=== PATIENT | male | born 1975 | race Caucasian/White ===

== ENCOUNTER 2024-10-18 15:30 | Inpatient (IN) | payer OTHER ==
[~2024-10-18] VITALS: Ht 180.3 cm; Wt 95.0 kg
[2024-10-18] MEDS: VANCOMYCIN 1.25 GM/WATER(PEG) 250 ML IV ONE (16:33)
[2024-10-18] MEDS: CLINDAMYCIN 600 MG/D5% WATER 50 ML IV ONE (16:33)
[2024-10-18 16:42] LABS: EOSINOPHILS % (AUTO) 2.1 % (1.0-6.0); HEMOGLOBIN 12.9 g/dL (13.5-17.5); LYMPHOCYTES # (AUTO) 6.5 K/uL (1.0-4.8); LYMPHOCYTES % (AUTO) 56.8 % (22.0-44.0); MEAN CORPUSCULAR HEMOGLOBIN 30.1 pg (26.0-34.0); MEAN CORPUSCULAR VOLUME 89 fL (80-100); MONOCYTES # (AUTO) 1.3 K/uL (0.1-1.0); MONOCYTES % (AUTO) 11.6 % (2.0-9.0); NEUTROPHILS # (AUTO) 3.3 K/uL (1.8-7.7); NEUTROPHILS % (AUTO) 28.5 % (40.0-70.0); PLATELET COUNT (AUTO) 336 K/uL (150-450); RED BLOOD CELL COUNT(AUTO) 4.29 MIL/uL (4.50-5.90); RED CELL DISTRIBUTION WIDTH 13.9 % (11.5-14.5); WHITE BLOOD COUNT (AUTO) 11.5 K/uL (4.5-11.0)
[2024-10-18 16:59] LABS: ANION GAP 8 mmol/L (8-16); CALCIUM, TOTAL 8.9 mg/dL (8.8-10.5); CARBON DIOXIDE 32 mmol/L (22-29); CHLORIDE 103 mmol/L (98-107); CREATININE 0.87 mg/dL (0.60-1.30); GLOMERULAR FILTR. RATE CALC > 60 mL/min (>60); GLUCOSE,RANDOM 113 mg/dL (70-110); LACTIC ACID 0.8 mmol/L (0.4-2.0); POTASSIUM 4.4 mmol/L (3.5-5.1); SODIUM SERUM 142 mmol/L (136-145); UREA NITROGEN, BLOOD 10 mg/dL (7-18)
[2024-10-18 17:05] LABS: ALANINE AMINOTRANSFERASE 51 U/L (12-78); ALBUMIN 3.4 g/dL (3.4-5.0); ALKALINE PHOSPHATASE 96 U/L (46-116); ASPARTATE AMINOTRANSFERASE 41 U/L (15-37); BILIRUBIN,TOTAL 0.3 mg/dL (0.1-1.0); TOTAL PROTEIN, SERUM 7.7 g/dL (6.4-8.2)
[2024-10-18] MEDS ORDERED: BUPR1TAB45 SL (17:09)
[2024-10-18] MEDS ORDERED: ACET-2247 PO (17:09)
[2024-10-18] MEDS ORDERED: ADAL40SY SQ (17:09)
[2024-10-18] MEDS ORDERED: DOXY50 PO (17:09)
[2024-10-18] MEDS ORDERED: CARV3 PO (17:09)
[2024-10-18] MEDS ORDERED: DOCU-385 PO (17:09)
[2024-10-18] MEDS ORDERED: AMIT75TA6 PO (17:09)
[2024-10-18 17:30] LABS: APPEARANCE,URINE CLEAR (CLEAR); BILIRUBIN,URINE NEGATIVE (NEGATIVE); COLOR,URINE LIGHT YELLOW (YELLOW); GLUCOSE, URINE (UA) NEGATIVE (NEGATIVE); KETONES,URINE NEGATIVE (NEGATIVE); LEUKOCYTE ESTERASE ,URINE NEGATIVE (NEGATIVE); NITRATE,URINE NEGATIVE (NEGATIVE); OCCULT BLOOD,URINE NEGATIVE (NEGATIVE); PH,URINE 5.5 (5.0-8.0); PROTEIN,URINE NEGATIVE (NEGATIVE); SPECIFIC GRAVITIY, URINE 1.008 (1.003-1.030); UROBILINOGEN,URINE <=1.0 mg/dL (<=1.0)
[2024-10-18] MEDS ORDERED: ONDANSETRON HCL 4 MG/2 ML VIAL IVP PRN (18:45)
[2024-10-18] MEDS: CefTRIAXone 1 GM/DEXTROSE 50 ML IV SCH (19:17)
[2024-10-18] MEDS: DOCUSATE SODIUM 100 MG CAPSULE PO SCH (21:00)
[2024-10-18] MEDS: POLYETHYLENE GLYCOL 3350 17 GM PACKET PO PRN (22:43)
[2024-10-18] MEDS: SENNOSIDES 8.8 MG/5 ML SYRUP UDCUP PO ONE (22:44)
[2024-10-18] MEDS: BISACODYL 5 MG EC TABLET PO ONE (22:44)
[2024-10-19] MEDS: VANCOMYCIN HCL 1 GM/D5% WATER 200 ML IV SCH (00:33)
[2024-10-19] MEDS: HEPARIN SODIUM,PORCINE 5,000 UNITS/ML VIAL SQ SCH (00:34)
[2024-10-19 03:46] VITALS: BP 137/86; PULSE 56; RESP 18; TEMP 97.9; O2SAT 96
[2024-10-19] MEDS: ACETAMINOPHEN 325 MG TABLET PO PRN (04:21)
[2024-10-19 07:21] VITALS: BP 121/60; PULSE 70; RESP 18; TEMP 97.7; O2SAT 97
[2024-10-19 08:06] LABS: HIV 1-2 SCREEN 4TH GEN W/RFLX Non Reactive (Non Reactive)
[2024-10-19] MEDS ORDERED: SODIUM CHLORIDE 0.9% 250 ML IV ONE (08:16)
[2024-10-19 10:02] LABS: BASOPHILS % (AUTO) 0.6 % (0.0-2.0); EOSINOPHILS % (AUTO) 4.2 % (1.0-6.0); HEMATOCRIT 38.1 % (41-53); LYMPHOCYTES # (AUTO) 4.1 K/uL (1.0-4.8); LYMPHOCYTES % (AUTO) 49.3 % (22.0-44.0); MEAN CORPUSCULAR HEMOGLOBIN 29.9 pg (26.0-34.0); MEAN CORPUSCULAR VOLUME 88 fL (80-100); MONOCYTES # (AUTO) 0.7 K/uL (0.1-1.0); MONOCYTES % (AUTO) 8.1 % (2.0-9.0); NEUTROPHILS # (AUTO) 3.1 K/uL (1.8-7.7); NEUTROPHILS % (AUTO) 37.8 % (40.0-70.0); PLATELET COUNT (AUTO) 345 K/uL (150-450); RED BLOOD CELL COUNT(AUTO) 4.33 MIL/uL (4.50-5.90); RED CELL DISTRIBUTION WIDTH 13.9 % (11.5-14.5); WHITE BLOOD COUNT (AUTO) 8.3 K/uL (4.5-11.0)
[2024-10-19 10:17] LABS: ANION GAP 8 mmol/L (8-16); CALCIUM, TOTAL 9.1 mg/dL (8.8-10.5); CARBON DIOXIDE 26 mmol/L (22-29); CHLORIDE 105 mmol/L (98-107); CREATININE 0.82 mg/dL (0.60-1.30); GLOMERULAR FILTR. RATE CALC > 60 mL/min (>60); GLUCOSE,RANDOM 178 mg/dL (70-110); POTASSIUM 4.1 mmol/L (3.5-5.1); SODIUM SERUM 139 mmol/L (136-145); UREA NITROGEN, BLOOD 10 mg/dL (7-18)
[2024-10-19] MEDS: BUPRENORPHINE HCL/NALOXONE HCL 2-0.5 MG SUBLINGUAL TABLET SL SCH (20:24)
[2024-10-19 20:30] VITALS: BP 129/75; PULSE 62; RESP 19; TEMP 98.7; O2SAT 98
[2024-10-20 05:13] VITALS: BP 122/77; PULSE 64; RESP 19; TEMP 98.2; O2SAT 95
[2024-10-20 07:10] LABS: BASOPHILS % (AUTO) 1.1 % (0.0-2.0); EOSINOPHILS % (AUTO) 4.4 % (1.0-6.0); HEMATOCRIT 38.9 % (41-53); HEMOGLOBIN 13.4 g/dL (13.5-17.5); LYMPHOCYTES # (AUTO) 5.6 K/uL (1.0-4.8); LYMPHOCYTES % (AUTO) 63.6 % (22.0-44.0); MEAN CORPUSCULAR HEMOGLOBIN 30.6 pg (26.0-34.0); MEAN CORPUSCULAR HGB CONC 34.3 G/dL (31.0-37.0); MEAN CORPUSCULAR VOLUME 89 fL (80-100); MONOCYTES # (AUTO) 0.8 K/uL (0.1-1.0); MONOCYTES % (AUTO) 9.5 % (2.0-9.0); NEUTROPHILS # (AUTO) 1.9 K/uL (1.8-7.7); NEUTROPHILS % (AUTO) 21.4 % (40.0-70.0); PLATELET COUNT (AUTO) 345 K/uL (150-450); RED BLOOD CELL COUNT(AUTO) 4.38 MIL/uL (4.50-5.90); RED CELL DISTRIBUTION WIDTH 13.6 % (11.5-14.5); WHITE BLOOD COUNT (AUTO) 8.8 K/uL (4.5-11.0)
[2024-10-20 07:27] LABS: ANION GAP 4 mmol/L (8-16); CALCIUM, TOTAL 9.3 mg/dL (8.8-10.5); CARBON DIOXIDE 31 mmol/L (22-29); CHLORIDE 106 mmol/L (98-107); CREATININE 0.83 mg/dL (0.60-1.30); GLOMERULAR FILTR. RATE CALC > 60 mL/min (>60); GLUCOSE,RANDOM 88 mg/dL (70-110); SODIUM SERUM 141 mmol/L (136-145); UREA NITROGEN, BLOOD 9 mg/dL (7-18)
[2024-10-20 08:11] VITALS: BP 117/79; PULSE 61; RESP 18; TEMP 98.4; O2SAT 98
[2024-10-20] MEDS ORDERED: KETOROLAC TROMETHAMINE 60 MG/2 ML VIAL IM ONE (12:00)
[2024-10-20] MEDS ORDERED: DEXAMETHASONE SOD PHOS 4 MG/ML VIAL IVP ONE (12:00)
[2024-10-20] MEDS ORDERED: ONDANSETRON HCL 4 MG/2 ML VIAL IVP ONE (12:00)
[2024-10-20] MEDS ORDERED: LIDOCAINE/PF 2% 5 ML SYRINGE IVP ONE (12:00)
[2024-10-20] MEDS ORDERED: PROPOFOL 1% 20 ML VIAL IVP ONE (12:00)
[2024-10-20] MEDS ORDERED: MIDAZOLAM HCL 2 MG/2 ML VIAL IVP ONE (12:00)
[2024-10-20] MEDS ORDERED: METOCLOPRAMIDE HCL 5 MG/ML 2 ML VIAL IVP ONE (12:00)
[2024-10-20] MEDS ORDERED: PROPOFOL 1% ISO-OSM 1000 MG/100 ML BOTTLE IV ONE (12:00)
[2024-10-20] MEDS ORDERED: DOXY-354 PO (12:13)
[2024-10-20 16:24] VITALS: BP 117/71; PULSE 61; RESP 18; TEMP 98.4; O2SAT 97
[2024-10-20] MEDS ORDERED: RINGERS SOLUTION,LACTATED 1,000 ML IV ONE (17:42)
[2024-10-20] MEDS: ETHYL ALCOHOL 62% ANTISEPTIC NASAL SANITIZER 0.6 ML AMPUL NASAL ONE (17:55)
[2024-10-20] MEDS ORDERED: MEPERIDINE-PF 25 MG/ML VIAL IVP PRN (18:15)
[2024-10-20] MEDS ORDERED: FentaNYL CITRATE PF 100 MCG/2 ML VIAL IVP PRN (18:15)
[2024-10-20] MEDS ORDERED: HYDROmorphone HCL 2 MG/ML SYRINGE IVP PRN ×2 (18:15→20:15)
[2024-10-20] MEDS ORDERED: BUPIVACAINE 0.25%/EPI 1:200,000/PF 30 ML VIAL ONE (19:01)
[2024-10-20] MEDS ORDERED: BUPIVACAINE 0.25%/EPI 1:200,000/PF 10 ML VIAL ONE (19:01)
[2024-10-20] MEDS: BUPIVACAINE 0.25%/EPI 1:200,000/PF 10 ML VIAL PERC ONE (19:50)
[2024-10-20 20:56] VITALS: BP 129/89; PULSE 65; RESP 18; TEMP 98.1; O2SAT 95
[2024-10-20] MEDS: IBUPROFEN 400 MG TABLET PO SCH (21:22)
[2024-10-20] MEDS: FAMOTIDINE 20 MG TABLET PO SCH (21:22)
[2024-10-20] MEDS: CHLORHEXIDINE GLUCONATE 2% TOWELETTE [2'S/6'S] TP SCH (21:23)
[2024-10-20] MEDS ORDERED: SODIUM CHLORIDE 0.9% 500 ML IV ONE (23:22)
[2024-10-20] MEDS: HYDROCODONE/ACETAMINOPHEN 10-325 MG TABLET PO PRN (23:37)
[2024-10-21 05:31] VITALS: BP 114/68; PULSE 72; RESP 18; TEMP 97.7; O2SAT 94
[2024-10-21 08:24] VITALS: BP 123/83; PULSE 63; RESP 18; TEMP 98.4; O2SAT 98
[2024-10-21 08:30] LABS: ANION GAP 6 mmol/L (8-16); CALCIUM, TOTAL 9.3 mg/dL (8.8-10.5); CARBON DIOXIDE 28 mmol/L (22-29); CHLORIDE 105 mmol/L (98-107); CREATININE 0.82 mg/dL (0.60-1.30); GLOMERULAR FILTR. RATE CALC > 60 mL/min (>60); GLUCOSE,RANDOM 120 mg/dL (70-110); POTASSIUM 4.9 mmol/L (3.5-5.1); SODIUM SERUM 139 mmol/L (136-145); UREA NITROGEN, BLOOD 14 mg/dL (7-18)
[2024-10-21 17:11] VITALS: BP 114/72; PULSE 62; RESP 19; TEMP 98.2; O2SAT 95
[2024-10-21] MEDS: BUPRENORPHINE HCL/NALOXONE HCL 2-0.5 MG SUBLINGUAL TABLET SL SCH (18:00)
[2024-10-21 20:06] VITALS: BP 119/76; PULSE 57; RESP 18; TEMP 97.8; O2SAT 98
[2024-10-22 05:24] VITALS: BP 118/76; PULSE 56; RESP 18; TEMP 98; O2SAT 96
[2024-10-22 07:30] LABS: ANION GAP 3 mmol/L (8-16); CALCIUM, TOTAL 8.8 mg/dL (8.8-10.5); CARBON DIOXIDE 29 mmol/L (22-29); CHLORIDE 108 mmol/L (98-107); CREATININE 0.78 mg/dL (0.60-1.30); GLOMERULAR FILTR. RATE CALC > 60 mL/min (>60); GLUCOSE,RANDOM 89 mg/dL (70-110); POTASSIUM 4.1 mmol/L (3.5-5.1); SODIUM SERUM 140 mmol/L (136-145); UREA NITROGEN, BLOOD 13 mg/dL (7-18)
[2024-10-22 08:05] VITALS: BP 133/77; PULSE 59; RESP 18; TEMP 97.8; O2SAT 95
[2024-10-22] MEDS: VANCOMYCIN 1.5 GM/WATER(PEG) 300 ML IV SCH (08:10)
[2024-10-22 20:04] VITALS: BP 130/81; PULSE 69; RESP 18; TEMP 98.2; O2SAT 94
[2024-10-23 05:04] VITALS: BP 133/75; PULSE 65; RESP 18; TEMP 97.8; O2SAT 94
[2024-10-23 08:09] VITALS: BP 120/78; PULSE 61; RESP 18; TEMP 97.8; O2SAT 96
[2024-10-23 08:46] LABS: CALCIUM, TOTAL 8.6 mg/dL (8.8-10.5); CARBON DIOXIDE 30 mmol/L (22-29); GLOMERULAR FILTR. RATE CALC > 60 mL/min (>60); GLUCOSE,RANDOM 79 mg/dL (70-110); UREA NITROGEN, BLOOD 13 mg/dL (7-18)
[2024-10-23 09:11] LABS: ANION GAP 5 mmol/L (8-16); CHLORIDE 107 mmol/L (98-107); POTASSIUM 4.8 mmol/L (3.5-5.1); SODIUM SERUM 142 mmol/L (136-145)
[2024-10-23 20:00] VITALS: BP 127/72; PULSE 67; RESP 20; TEMP 98; O2SAT 96
[2024-10-23] MEDS: OXYGEN THERAPY IH SCH (20:00)
[2024-10-24 04:20] VITALS: BP 122/69; PULSE 59; RESP 18; TEMP 97.7; O2SAT 96
[2024-10-24 07:25] LABS: HEMOGLOBIN 13.5 g/dL (13.5-17.5); MEAN CORPUSCULAR HEMOGLOBIN 30.6 pg (26.0-34.0); MEAN CORPUSCULAR HGB CONC 34.7 G/dL (31.0-37.0); MEAN CORPUSCULAR VOLUME 88 fL (80-100); PLATELET COUNT (AUTO) 399 K/uL (150-450); RED BLOOD CELL COUNT(AUTO) 4.43 MIL/uL (4.50-5.90); RED CELL DISTRIBUTION WIDTH 13.9 % (11.5-14.5)
[2024-10-24 07:31] LABS: ANION GAP 8 mmol/L (8-16); CALCIUM, TOTAL 8.8 mg/dL (8.8-10.5); CARBON DIOXIDE 28 mmol/L (22-29); CHLORIDE 105 mmol/L (98-107); CREATININE 0.83 mg/dL (0.60-1.30); GLOMERULAR FILTR. RATE CALC > 60 mL/min (>60); GLUCOSE,RANDOM 83 mg/dL (70-110); POTASSIUM 4.5 mmol/L (3.5-5.1); SODIUM SERUM 141 mmol/L (136-145); UREA NITROGEN, BLOOD 13 mg/dL (7-18)
[2024-10-24 08:43] LABS: BAND NEUTROPHILS % (MANUAL) 0 % (0-5)
[2024-10-24 08:46] LABS: EOSINOPHILS % (MANUAL) 5 % (1-6); LYMPHOCYTES % (MANUAL) 51 % (22-44); MONOCYTES % (MANUAL) 13 % (2-9); RBC MORPHOLOGY COMMENT NORMAL RBC MORPH; SEGMENTED NEUTROPHILS % 31 % (40-70); TOTAL CELLS COUNTED 100
[2024-10-24 10:35] VITALS: BP 126/72; PULSE 66; RESP 19; TEMP 97.9; O2SAT 96
[2024-10-24 19:57] VITALS: BP 120/87; PULSE 65; RESP 18; TEMP 98.3; O2SAT 98
[2024-10-25 05:05] VITALS: BP 114/75; PULSE 60; RESP 18; TEMP 97.6; O2SAT 97
[2024-10-25 08:04] VITALS: BP 117/64; PULSE 67; RESP 18; TEMP 98; O2SAT 97
[2024-10-25 08:05] LABS: ANION GAP 5 mmol/L (8-16); CARBON DIOXIDE 30 mmol/L (22-29); CHLORIDE 106 mmol/L (98-107); CREATININE 0.77 mg/dL (0.60-1.30); GLOMERULAR FILTR. RATE CALC > 60 mL/min (>60); GLUCOSE,RANDOM 84 mg/dL (70-110); POTASSIUM 4.4 mmol/L (3.5-5.1); SODIUM SERUM 141 mmol/L (136-145); UREA NITROGEN, BLOOD 13 mg/dL (7-18)
[2024-10-25] MEDS: CLINDAMYCIN HCL 300 MG CAPSULE PO SCH (18:32)
[2024-10-25 19:48] VITALS: BP 122/74; PULSE 69; RESP 20; TEMP 98.3; O2SAT 96
[2024-10-26 04:40] VITALS: BP 106/63; PULSE 60; RESP 18; TEMP 98; O2SAT 98
[2024-10-26 07:51] LABS: BASOPHILS % (AUTO) 0.2 % (0.0-2.0); EOSINOPHILS % (AUTO) 3.6 % (1.0-6.0); HEMATOCRIT 40.8 % (41-53); HEMOGLOBIN 14.1 g/dL (13.5-17.5); LYMPHOCYTES # (AUTO) 6.1 K/uL (1.0-4.8); LYMPHOCYTES % (AUTO) 58.6 % (22.0-44.0); MEAN CORPUSCULAR HEMOGLOBIN 30.8 pg (26.0-34.0); MEAN CORPUSCULAR HGB CONC 34.6 G/dL (31.0-37.0); MEAN CORPUSCULAR VOLUME 89 fL (80-100); MONOCYTES # (AUTO) 0.9 K/uL (0.1-1.0); MONOCYTES % (AUTO) 8.2 % (2.0-9.0); NEUTROPHILS # (AUTO) 3.1 K/uL (1.8-7.7); NEUTROPHILS % (AUTO) 29.4 % (40.0-70.0); PLATELET COUNT (AUTO) 402 K/uL (150-450); RED BLOOD CELL COUNT(AUTO) 4.58 MIL/uL (4.50-5.90); RED CELL DISTRIBUTION WIDTH 13.6 % (11.5-14.5); WHITE BLOOD COUNT (AUTO) 10.5 K/uL (4.5-11.0)
[2024-10-26 08:04] VITALS: BP_SYST 107; BP_SYST 117; BP_DIAS 66; BP_DIAS 67; PULSE 64; RESP 20; TEMP 98.1; O2SAT 95; O2SAT 98
[2024-10-26 08:07] LABS: RBC MORPHOLOGY COMMENT NORMAL RBC MORPH
[2024-10-26] MEDS ORDERED: CHLO1TOW (14:29)
[2024-10-26] MEDS ORDERED: CEPH-558 PO (14:30)
[2024-10-26] MEDS ORDERED: FAMO20 PO (14:31)
[2024-10-26] MEDS ORDERED: IBUP-2853 PO (14:33)
[2024-10-26] MEDS ORDERED: POLY17PO47 PO (14:33)
[2024-10-26 17:06] VITALS: BP 117/77; PULSE 90; RESP 18; TEMP 97.9; O2SAT 99
== END 2024-10-26 22:40 | DRG 571 ==
LOC: EMS 15:30 → EDH 18:51 → EDBD 18:51 → 6S 10-19 03:38
PROVIDERS: ADMIT Internal Medicine; ATTEND Internal Medicine
PROC: 0JBC0ZZ Excision of Pelvic Region Subcutaneous Tissue and Fascia, Open Approach (ICD-10-PCS; principal; 2024-10-20 20:00)
DX: L03.314 Cellulitis of groin (principal); D84.821 Immunodeficiency due to drugs; I96 Gangrene, not elsewhere classified; L02.214 Cutaneous abscess of groin; I88.9 Nonspecific lymphadenitis, unspecified; K59.00 Constipation, unspecified; I10 Essential (primary) hypertension; F32.A Depression, unspecified; F11.10 Opioid abuse, uncomplicated; K76.0 Fatty (change of) liver, not elsewhere classified; K42.9 Umbilical hernia without obstruction or gangrene; K74.60 Unspecified cirrhosis of liver; Z79.899 Other long term (current) drug therapy; Z85.72 Personal history of non-Hodgkin lymphomas
CPT/HCPCS: 74177; 80048; 80076; 80202; 81003; 83605; 83735; 84132; 85025; 86592; 87015; 87040; 87070; 87081; 87101; 87186; 87205; 87206; 87340; 87389; 87491; 87591; 96365; 96367; 96368; 99285; G0378; J0696; J1100; J1644; J1885; J2250; J2405; J2704; J2765; J3370; J3490; J7040; J7050; J7120; 36415-L1; 36415-TC; Z7610